=== PATIENT | female | born 1980 | race Two or more races ===

== ENCOUNTER 2017-05-18 16:40 | Emergency (ER) | payer OTHER ==
[~2017-05-18] VITALS: Ht 162.6 cm; Wt 63.5 kg
[2017-05-18 16:45] VITALS: BP 111/67
== END 2017-05-18 17:16 | disposition home or self-care (01) ==
LOC: ER 16:42
DX: J20.9 Acute bronchitis, unspecified (principal)
CPT/HCPCS: A4606; Z7610

== ENCOUNTER 2017-07-27 10:57 | Emergency (ER) | payer OTHER ==
[~2017-07-27] VITALS: Ht 162.6 cm; Wt 59.0 kg
[2017-07-27 11:05] VITALS: BP 94/53
== END 2017-07-27 11:39 | disposition home or self-care (01) ==
LOC: ER 10:58
DX: J32.9 Chronic sinusitis, unspecified (principal); F17.200 Nicotine dependence, unspecified, uncomplicated
CPT/HCPCS: A4606; Z7610

== ENCOUNTER 2017-07-30 14:12 | Emergency (ER) | payer OTHER ==
[~2017-07-30] VITALS: Ht 160 cm; Wt 56.7 kg
[2017-07-30 14:25] VITALS: BP 132/71
== END 2017-07-30 15:15 | disposition home or self-care (01) ==
LOC: ER 14:18
DX: J20.9 Acute bronchitis, unspecified (principal)
CPT/HCPCS: A4606; Z7610

== ENCOUNTER 2018-12-10 19:50 | Emergency (ER) | payer OTHER ==
[~2018-12-10] VITALS: Ht 162.6 cm; Wt 63.5 kg
--- NOTE | 2018-12-10 20:05 | NUR ---
PT BIBSELF C/O VAGINAL DISCHARGE X2 DAYS. DENIES VAGINAL BLEEDING, DYSURIA, HEMATURIA. PT AAOX4. RESPIRATIONS EVEN AND UNLABORED. SKIN INTACT. ABLE TO AMBULATE WITH STEADY GAIT. WILL CONTINUE TO MONITOR
--- NOTE | 2018-12-10 20:27 | NUR ---
URINE COLLECTED AND SENT TO LAB
--- NOTE | 2018-12-10 20:35 | NUR ---
PT REFUSED PELVIC EXAM. ROZINA MCCULLOUGH AWARE
[2018-12-10 20:36] LABS: APPEARANCE,URINE Clear (CLEAR); BILIRUBIN,URINE Negative (NEGATIVE); BLOOD, URINE Moderate Ery/uL (NEGATIVE); COLOR,URINE Yellow (YELLOW); KETONES,URINE Trace (NEGATIVE); LEUKOCYTE ESTERASE ,URINE Negative (NEGATIVE); NITRITE, URINE Negative (NEGATIVE); PROTEIN,URINE Negative (NEGATIVE); UGLUCOSE Negative (NEGATIVE); UROBILINOGEN,URINE 0.2 EU/dL (0.2)
--- NOTE | 2018-12-10 20:40 | NUR ---
U/S PELVIC ULTRASOUND ACCIDENTLY ORDERED BY ALICIA MCCULLOUGH. HE WILL CANCEL THE EXAM BECAUSE IT IS NOT NEEDED.
--- NOTE | 2018-12-10 20:43 | NUR ---
Patient discharged to home in stable condition. Written and verbal after care instructions given. Patient verbalizes understanding of instruction.Pt ambulatory with a steady gait
[2018-12-10 20:45] VITALS: BP 118/86
[2018-12-10 20:48] LABS: BACTERIA,URINE None seen /HPF (None Seen); RBC,URINE NONE SEEN /HPF (0-2); SQUAMOUS EPITHELIAL CELL,UR Rare /HPF (None Seen); WBC,URINE NONE SEEN /HPF (0-3)
== END 2018-12-10 20:47 | disposition home or self-care (01) ==
LOC: ER 20:08
DX: N89.8 Other specified noninflammatory disorders of vagina (principal); F17.200 Nicotine dependence, unspecified, uncomplicated
CPT/HCPCS: 81001; 84703; 87086; 87491; 87591; 99283; A6403; 81000-TC

== ENCOUNTER 2018-12-13 23:41 | Emergency (ER) | payer MEDICAID, OTHER ==
[~2018-12-13] VITALS: Ht 162.6 cm; Wt 65.8 kg
[2018-12-13 23:54] VITALS: BP 118/74
== END 2018-12-14 00:14 | disposition home or self-care (01) ==
LOC: ER 23:45
DX: N76.0 Acute vaginitis (principal); B96.89 Other specified bacterial agents as the cause of diseases classified elsewhere; F17.200 Nicotine dependence, unspecified, uncomplicated

== ENCOUNTER 2018-12-25 18:37 | Emergency (ER) | payer MEDICAID ==
[~2018-12-25] VITALS: Ht 162.6 cm; Wt 63.5 kg
[2018-12-25 18:44] VITALS: BP 105/69
--- NOTE | 2018-12-25 19:33 | NUR ---
PT IN ROOM RESTING COMFORTABLY, VAGINAL AND WET MOUTH CULTURES SENT TO LAB
== END 2018-12-25 20:26 | disposition home or self-care (01) ==
LOC: ER 18:39
DX: N89.8 Other specified noninflammatory disorders of vagina (principal); F17.200 Nicotine dependence, unspecified, uncomplicated; Z30.430 Encounter for insertion of intrauterine contraceptive device
CPT/HCPCS: 87070-TC; 87210-TC

== ENCOUNTER 2019-05-07 15:20 | Emergency (ER) | payer MEDICAID ==
[~2019-05-07] VITALS: Ht 162.6 cm; Wt 63.5 kg
[2019-05-07 15:30] VITALS: BP 112/66
== END 2019-05-07 16:00 | disposition home or self-care (01) ==
LOC: ER 15:21
DX: N76.0 Acute vaginitis (principal); F17.200 Nicotine dependence, unspecified, uncomplicated